=== PATIENT | male | born 1950 | race Caucasian/White ===

== ENCOUNTER 2017-02-26 10:40 | Emergency (ER) | payer OTHER ==
[~2017-02-26] VITALS: Ht 188 cm; Wt 115.0 kg
[~2017-02-26 10:40] MED LIST: ASPIRIN EC325 MG PO; ASPIRIN325 MG PO; ATORVASTATIN CA80 MG PO; BENTYL20 MG PO; CEFDINIR300 MG PO; CIPRO500 MG PO; COENZYME Q10100 M1 PO; COLACE100 MG PO; EFFIENT10 MG PO; FLAGYL500 MG PO; LEVAQUIN750 MG PO; LISINOPRIL2.5 MG PO; LISINOPRIL20 MG PO; LITE COAT ASPI325 M1 PO; METOPROLOL SUCC25 MG PO; MOTION SICKNESS25 M4 PO; NITROSTAT0.4 MG SL; OMEPRAZOLE40 M1 PO; PANTOPRAZOLE SO40 MG PO; PERCOCET 5/31 TABLET PO; PLAVIX75 MG PO; TOPROL XL25 MG PO; TRAMADOL HCL50 MG PO
[2017-02-26] MEDS ORDERED: PERCOCET 5/31 TABLET PO (12:53)
[2017-02-26 13:05] VITALS: BP 120/84
[2017-02-26 13:27] LABS: CHLORIDE 106 mEq/L (99-109); HEMATOCRIT 51.4 % (38.0-50.0); MCH 31.5 PG (29.0-34.0); MCHC 33.7 G/DL (30.0-36.0); MCV 93.5 FL (86-99); MEAN PLAT.VOLUME 9.1 uM^3 (9.0-12.4); PLATELET COUNT 169 K/uL (156-360); POTASSIUM 3.7 mEq/L (3.7-5.4); RBC DIS.WIDTH-SD 44.6 % (39-53); SODIUM 142 mEq/L (136-147); WHITE BLOOD COUNT 15.7 K/uL (4.1-10.2)
[2017-02-26 13:29] LABS: GLUCOSE 123 mg/dL (70-99)
[2017-02-26 13:30] LABS: ANION GAP 11 MEQ/L (2-14)
[2017-02-26 13:33] LABS: GFR ESTIMATE (CALCULATED) > 59 mL/min/
[2017-02-26 13:34] LABS: UREA NITROGEN (BUN) 17 mg/dL (9-23)
[2017-02-26 13:35] LABS: URIC ACID 7.5 mg/dL (3.1-9.2)
== END 2017-02-26 13:06 | disposition home or self-care (01) ==
LOC: EME 10:40
PROVIDERS: Physician Assistant
DX: M25.562 Pain in left knee (principal); Z79.01 Long term (current) use of anticoagulants; Z95.5 Presence of coronary angioplasty implant and graft
CPT/HCPCS: 73564; 80048; 84550; 85027; 93971; 99281; 99284; J3010